=== PATIENT | male | born 1990 | race Caucasian/White ===

== ENCOUNTER 2017-01-04 17:20 | Emergency (ER) | payer OTHER ==
[~2017-01-04] VITALS: Ht 188 cm; Wt 127.0 kg
[2017-01-04] MEDS ORDERED: LORazepam 2 MG/ML VIAL (J2060) IV STA (17:33)
[2017-01-04 19:04] VITALS: BP 128/59
[2017-01-04] MEDS ORDERED: LISI10TA4 (19:06)
== END 2017-01-04 19:07 | disposition home or self-care (01) ==
LOC: M ED 18:43
DX: F16.10 Hallucinogen abuse, uncomplicated (principal); R45.1 Restlessness and agitation; F17.200 Nicotine dependence, unspecified, uncomplicated; Z79.899 Other long term (current) drug therapy; Z88.1 Allergy status to other antibiotic agents
CPT/HCPCS: 93041; 96374; 99285; J2060